=== PATIENT | female | born 1970 | race African-American/Black ===

== ENCOUNTER 2021-10-04 11:04 | Emergency (ER) | payer MEDICARE, OTHER ==
[2021-10-04 11:58] LABS: BASOPHIL 0.4 % (0-2); EOSINOPHIL 0.7 % (0-5); HCT 43.3 % (37.0-47.0); HGB 14.1 g/dl (12.5-16.0); MCH 31.7 pg (25.0-31.0); MCHC 32.6 g/dL (32.0-36.0); MCV 97.3 fL (78.0-100.0); MONOCYTE 9.4 % (0-12); MPV 9.3 fL (6.0-9.5); NEUTROPHIL 48.4 % (41-80); NRBC 0; PLT 238 K/uL (150-400); RBC 4.45 M/uL (4.20-5.40); RDW 12.9 % (11.5-14.0); WBC 7.3 K/uL (4.0-10.5)
[2021-10-04 12:54] LABS: ALBUMIN 4.7 g/dL (3.4-5.0); ALKALINE PHOSHATASE 148 U/L (46-116); ALT 30 U/L (14-59); AST 12 U/L (15-37); BILIRUBIN - TOTAL 0.2 mg/dL (0.2-1.0); BUN 13 mg/dL (7-18); BUN/CREAT RATIO (CALC) 14.1 RATIO; CHLORIDE 104 mmol/L (98-107); CO2 (BICARBONATE) 27 mmol/L (21-32); CREATININE 0.92 mg/dL (0.51-0.95); GLOBULIN (CALCULATION) 2.9 g/dL; GLUCOSE 113 mg/dL (74-106); POTASSIUM 4.1 mmol/L (3.5-5.1); TOTAL PROTEIN 7.6 g/dL (6.4-8.2)
[2021-10-04 12:55] LABS: C-REACTIVE PROTEIN < 0.20 mg/dL (<=0.90)
[2021-10-04] MEDS ORDERED: NORCO 5-325 TA1 EACH PO (14:06)
[2021-10-04] MEDS ORDERED: PREDNISONE 20MG20 MG PO (14:06)
[2021-10-04 14:39] LABS: BILIRUBIN NEGATIVE (NEGATIVE); BLOOD NEGATIVE Ery/uL (NEGATIVE); CLARITY CLEAR (CLEAR); COLOR YELLOW (YELLOW); GLUCOSE (U) NORMAL (NORMAL); LEUKOCYTES NEGATIVE Leu/uL (NEGATIVE); NITRITE NEGATIVE (NEGATIVE); PROTEIN NEGATIVE (NEGATIVE); SPECIFIC GRAVITY >=1.030 (1.001-1.030); UROBILINOGEN 0.2 mg/dL (0.2-1.0); pH 5.5 (5.0-9.0)
== END 2021-10-04 15:07 | disposition home or self-care (01) ==
LOC: FER 11:04
PROVIDERS: Emergency Medicine
DX: M54.2 Cervicalgia (principal); M54.9 Dorsalgia, unspecified; F17.290 Nicotine dependence, other tobacco product, uncomplicated
CPT/HCPCS: 36415; 70450; 80053; 81003; 82728; 83605; 84145; 84443; 85025; 86140; 87040; J1885; J2765